=== PATIENT | male | born 1945 | race Caucasian/White ===

== ENCOUNTER 2018-04-22 15:15 | Outpatient (CLI) | payer MEDICARE, SELFPAY ==
[2018-04-22 15:31] VITALS: BMI 21.7
[2018-04-22 16:01] LABS: Basophils % 0.3 % (0.1-2.0); Eosinophils # 0.1 K/mm3 (0.0-0.4); Eosinophils % 1.9 % (0.1-12.0); Hemoglobin 12.1 g/dL (14.1-18.0); Lymphocytes # 1.7 K/mm3 (0.7-4.5); Lymphocytes % 24.6 % (10-50); Mean Corpuscular HGB Conc 32.7 g/dL (31.8-35.4); Mean Corpuscular Hemoglobin 33.6 pg (27.0-31.2); Mean Corpuscular Volume 102.6 fl (80-94); Monocytes # 0.5 K/mm3 (0.1-1.0); Monocytes % 6.8 % (1.7-9.3); Neutrophils # 4.7 K/mm3 (1.8-7.8); Neutrophils % 66.4 % (37.0-80.0); Platelet Count 205 K/mm3 (142-424); Red Blood Count 3.61 M/mm3 (4.60-6.20); Red Cell Distribution Width 14.3 % (11.5-17.5)
[2018-04-22 16:06] LABS: Anion Gap 12.9 mEq/L (5-15); Blood Urea Nitrogen 12 mg/dL (7-18); Calcium 8.5 mg/dL (8.5-10.1); Carbon Dioxide 27 mmol/L (21.0-32.0); Chloride 99 mmol/L (98-107); Creatinine Clearance Estimated 63 mL/min (50-200); Creatinine,Serum 1.06 mg/dL (0.70-1.30); Estimated Glomerular Filt Rate 68 ml/min (>60); GFR (African American) 83 ML/MIN (>60); Glucose 137 mg/dL (74-106); Potassium 3.9 mmoL/L (3.5-5.1); Sodium 135 mmol/L (136-145)
[2018-04-22 16:08] LABS: Activated Partial Thrombo Time 28.2 seconds (23.6-34.0); INR 0.94 (0.9-1.1); Prothrombin Time 9.7 seconds (9.4-11.8)
== END 2018-04-22 15:30 | disposition home or self-care (01) ==
LOC: INF 15:33
PROVIDERS: Visit Provider Radiology Radiation Oncology
DX: C18.9 Malignant neoplasm of colon, unspecified (principal); Z51.81 Encounter for therapeutic drug level monitoring
CPT/HCPCS: 80048; 85025; 85610; 85730

== ENCOUNTER 2018-06-14 14:00 | Outpatient (CLI) | payer MEDICARE, SELFPAY | END 2018-06-14 14:25 | disposition home or self-care (01) | LOC: INF 14:11 | PROVIDERS: Visit Provider Internal Medicine Adolescent Medicine | DX: Z45.2 Encounter for adjustment and management of vascular access device (principal) | CPT/HCPCS: 96523; J1642 ==

== ENCOUNTER 2018-09-27 13:01 | Outpatient (CLI) | payer MEDICARE, SELFPAY | END 2018-09-27 13:10 | disposition home or self-care (01) | LOC: INF 13:01 | PROVIDERS: Visit Provider Internal Medicine Adolescent Medicine | DX: Z45.2 Encounter for adjustment and management of vascular access device (principal) | CPT/HCPCS: 96523 ==